=== PATIENT | male | born 1980 | race Caucasian/White ===

== ENCOUNTER → 2020-04-16 | Day surgery (SDC) | payer OTHER ==
[~2020-04-16] VITALS: Ht 180.3 cm; Wt 100.2 kg
[~2020-04-16] MED LIST: IBU800 MG PO; NORCO 7.5-3251 EACH PO
[2020-04-16 07:06] LABS: HEMOGLOBIN 14.7 gm/dl (14.0-17.5); RED BLOOD COUNT 4.65 M/UL (4.20-5.50); WHITE BLOOD COUNT 9.8 K/UL (4.5-11.0)
[2020-04-16 07:36] LABS: BUN/CREATININE RATIO 9 (0-10)
== END | disposition home or self-care (01) ==
LOC: OR 06:25
PROVIDERS: Orthopaedic Surgery
PROC: 0SBC4ZZ Excision of Right Knee Joint, Percutaneous Endoscopic Approach (ICD-10-PCS; principal; 2020-04-16 08:45)
DX: S83.271A Complex tear of lateral meniscus, current injury, right knee, initial encounter (principal); X58.XXXA Exposure to other specified factors, initial encounter; M94.261 Chondromalacia, right knee; F17.210 Nicotine dependence, cigarettes, uncomplicated; Z20.822 Contact with and (suspected) exposure to COVID-19
CPT/HCPCS: 36415; 80048; 85027; J0171; J0690; J1100; J2001; J2250; J2405; J2704; J2765; J3010; J7120